=== PATIENT | male | born 1950 | race Caucasian/White ===

== ENCOUNTER → 2016-08-08 | Outpatient (CLI) | payer BC ==
[~2016-08-08] MED LIST: ASPCH81X PO; GING500C2 PO; GREE150C PO; OMEG10007 PO; TURM1CAP4 PO; [UNRECOGNIZED DRUG - CODE] PO
[2016-08-08 17:29] LABS: BASO % 0.6 %; BASO ABS # 0.03 K/uL (0-0.2); COMPLETE YES; EOS % 1.2 %; HEMATOCRIT 38.8 % (42-52); IG% 0.2 %; LYMPH % 20.2 %; LYMPH ABS # 1.05 K/uL (1.2-3.4); MEAN CORPUSCULAR HEMOGLOBIN 30.3 pg (25-34); MEAN CORPUSCULAR HGB CONC 34.8 g/dl (32-36); MEAN PLATELET VOLUME 10.2 fL (7.4-10.4); MONO % 24.1 %; NEUT % 53.7 %; PLATELET COUNT 162 K/uL (130-400); RED BLOOD COUNT 4.46 M/uL (4.7-6.1); WHITE BLOOD COUNT 5.19 K/uL (4.8-10.8)
[2016-08-08 18:12] LABS: ALT/SGPT 52 U/L (12-78); AST/SGOT 61 U/L (15-37); BLOOD UREA NITROGEN 20 mg/dl (7-18); BUN/CREATININE RATIO 19.9 (10-20); CALCIUM 8.4 mg/dl (8.5-10.1); CARBON DIOXIDE 26 mmol/L (21-32); CHLORIDE 108 mmol/L (98-107); GLUCOSE 105 mg/dl (70-99); POTASSIUM 3.9 mmol/L (3.5-5.1); SODIUM 143 mmol/L (136-145)
[2016-08-08 18:14] LABS: ALB/GLOB RATIO 0.9 (0.9-2); ALKALINE PHOSPHATASE 55 U/L (45-117)
[2016-08-08 18:36] LABS: LYME DISEASE AB IGG NEG (NEG)
[2016-08-08 18:38] LABS: LYME DISEASE AB IGM POS (NEG)
[2016-08-12 10:21] LABS: 18KDIGG BAND NONREACTIVE (NONREACTIVE); 23KDIGG BAND NONREACTIVE (NONREACTIVE); 23KDIGM BAND REACTIVE (NONREACTIVE); 28KDIGG BAND NONREACTIVE (NONREACTIVE); 30KDIGG BAND NONREACTIVE (NONREACTIVE); 39KDIGG BAND NONREACTIVE (NONREACTIVE); 39KDIGM BAND NONREACTIVE (NONREACTIVE); 41KDIGG BAND REACTIVE (NONREACTIVE); 41KDIGM BAND REACTIVE (NONREACTIVE); 45KDIGG BAND NONREACTIVE (NONREACTIVE); 58KDIGG BAND NONREACTIVE (NONREACTIVE); 66KDIGG BAND NONREACTIVE (NONREACTIVE); 93KDIGG BAND NONREACTIVE (NONREACTIVE)
== END ==
LOC: C.LAB 16:38
PROVIDERS: ATTEND Physician Assistant Medical
DX: R50.9 Fever, unspecified (principal); R21 Rash and other nonspecific skin eruption

== ENCOUNTER → 2017-01-24 | Outpatient (CLI) | payer BC ==
[2017-01-24 17:46] LABS: LYME DISEASE AB IGG NEG (NEG)
[2017-01-24 17:48] LABS: LYME DISEASE AB IGM EQUIVOCAL (NEG)
== END | disposition home or self-care (01) ==
LOC: C.LABBC 15:22
PROVIDERS: ATTEND Nurse Practitioner Adult Health
DX: R53.81 Other malaise (principal)

== ENCOUNTER → 2017-04-27 | Outpatient (CLI) | payer BC ==
--- NOTE | 2017-04-27 10:11 | DIAGNOSTIC IMAGING REPORT ---
CHEST 2 VIEWS ROUTINE CLINICAL HISTORY: Acute bronchitis. COMPARISON STUDY: No previous studies for comparison. FINDINGS: Lung volumes are normal. Linear right basilar opacity is suggestive of atelectasis. There is no evidence of pulmonary edema. There is asymmetric right suprahilar opacity. Cardiac size is normal. Mediastinal contours are normal. IMPRESSION: 1. Asymmetric right suprahilar opacity. This favors a small focus of pneumonia. However, follow-up chest radiographs are recommended to exclude the possibility of an underlying lesion. 2. Linear right basilar opacity suggestive atelectasis. Electronically signed by: Rogelio Friedman M.D. 04/27/2017 10:10 AM Dictated Date/Time: 04/27/2017 10:08 AM
== END | disposition home or self-care (01) ==
LOC: C.RADBC 09:44
PROVIDERS: ATTEND Physician Assistant Medical
DX: J20.9 Acute bronchitis, unspecified (principal); R91.8 Other nonspecific abnormal finding of lung field